=== PATIENT | female | born 1985 | race Asian ===

== ENCOUNTER 2020-11-23 14:50 | Inpatient (IN) | payer MEDICAID, OTHER ==
[~2020-11-23] VITALS: Ht 172.7 cm; Wt 77.5 kg
[~2020-11-23 14:50] MED LIST: IBUP-1222 PO; OXYC1TAB14 PO
[2020-12-03] MEDS ORDERED: SODIUM CITRATE/CITRIC ACID 15 ML UDC ONE (05:59)
[2020-12-03] MEDS ORDERED: SODIUM CITRATE/CITRIC ACID 30 ML UDC PO ONE (06:00)
[2020-12-03] MEDS ORDERED: LACTATED RINGERS 1,000 ML IVBOLUS ONE (06:00)
[2020-12-03] MEDS ORDERED: NEWBORN KIT ONE (06:00)
[2020-12-03] MEDS ORDERED: METOCLOPRAMIDE 5 MG/ML, 2ML IV ONE (06:00)
[2020-12-03] MEDS ORDERED: ONDANSETRON 2MG/ML, 2ML IVPush ONE (06:00)
[2020-12-03] MEDS ORDERED: METOCLOPRAMIDE 5 MG/ML, 2ML ONE (06:00)
[2020-12-03] MEDS ORDERED: PLEASE ENTER HEIGHT AND WEIGHT MC SCH (06:30)
[2020-12-03 06:37] VITALS: BP 119/79
[2020-12-03 06:48] LABS: BASOPHILS % (AUTO) 1 % (0-1); EOSINOPHILS % (AUTO) 1 % (1-7); LYMPHOCYTES % (AUTO) 26 % (22-44); MEAN CORPUSCULAR HGB CONC 34.6 g/dL (32.4-35.8); MONOCYTES % (AUTO) 10 % (2-9); NEUTROPHILS % (AUTO) 63 % (42-75); PLATELET COUNT 143 x10^3/uL (130-400); RED BLOOD COUNT 4.52 x10^6/uL (3.82-5.3); RED CELL DISTRIBUTION WIDTH 12.5 % (9.6-15.2)
[2020-12-03] MEDS ORDERED: OXYTOCIN 30U/ 0.9% NaCL 500ML 500 ML ONE (07:05)
[2020-12-03] MEDS ORDERED: FENTANYL PF 100 MCG/2ML ONE (07:07)
[2020-12-03] MEDS ORDERED: CEFAZOLIN 1,000 MG ONE ×2 (07:09)
[2020-12-03] MEDS ORDERED: OXYTOCIN 10 UNITS/ML, 1ML ONE ×4 (07:09→08:18)
[2020-12-03] MEDS ORDERED: KETOROLAC 30 MG/1 ML ONE (07:09)
[2020-12-03 07:16] LABS: MD SCAN
[2020-12-03] MEDS: LACTATED RINGERS 1,000 ML IV SCH ×7 (07:29→23:00)
[2020-12-03] MEDS ORDERED: PHENYLEPHRINE 10 MG/ML ONE (07:53)
[2020-12-03] MEDS ORDERED: EPHEDRINE 50 MG/ML, 1ML ONE (07:53)
[2020-12-03] MEDS ORDERED: morphine SULFATE 10 MG/ML, 1ML IVPush PRN ×2 (09:00)
[2020-12-03] MEDS ORDERED: MORPHINE SULFATE 4 MG/ML, 1ML IVPush PRN (09:00)
[2020-12-03] MEDS: PRENATAL VIT/IRON/FA 1 EACH TABLET PO SCH (09:00)
[2020-12-03] MEDS ORDERED: CALCIUM CARBONATE 500 MG TAB.CHEW PO PRN (09:00)
[2020-12-03] MEDS ORDERED: DIPHENHYDRAMINE 50 MG/ML, 1ML IVPush PRN (09:00)
[2020-12-03] MEDS ORDERED: ACETAMINOPHEN 325 MG TABLET PO PRN ×2 (09:00)
[2020-12-03] MEDS ORDERED: CARBOPROST TROMETHAMINE 250 MCG/ML, 1ML IM PRN (09:00)
[2020-12-03] MEDS ORDERED: FENTANYL PF 100 MCG/2ML IV PRN (09:00)
[2020-12-03] MEDS ORDERED: ONDANSETRON 2MG/ML, 2ML IV PRN (09:00)
[2020-12-03] MEDS ORDERED: OXYcodone 5 MG/5 ML ORAL.SOL UDC PO PRN (09:00)
[2020-12-03] MEDS ORDERED: ONDANSETRON 2MG/ML, 2ML IVPush PRN (09:00)
[2020-12-03] MEDS ORDERED: LABETALOL 5MG/ML, 20ML IV PRN (09:00)
[2020-12-03] MEDS ORDERED: MISOPROSTOL 200 MCG TABLET PR PRN (09:00)
[2020-12-03] MEDS ORDERED: METHYLERGONOVINE 0.2 MG/ML IM PRN (09:00)
[2020-12-03] MEDS: OXYTOCIN 30U/ 0.9% NaCL 500ML 500 ML IV SCH ×2 (09:19→19:00)
[2020-12-03 10:58] VITALS: BP 122/79
[2020-12-03] MEDS: SIMETHICONE 80 MG CHEW TAB PO PRN ×3 (12:15→23:58)
[2020-12-03] MEDS: IBUPROFEN 600 MG TABLET PO PRN ×3 (12:15→23:59)
[2020-12-03 16:10] VITALS: BP 117/73
[2020-12-03] MEDS: OXYcodone/APAP 5/325MG TABLET PO PRN ×3 (16:11→23:59)
[2020-12-03 16:14] LABS: BASOPHILS % (AUTO) 0 % (0-1); EOSINOPHILS % (AUTO) 0 % (1-7); LYMPHOCYTES % (AUTO) 12 % (22-44); MEAN CORPUSCULAR HEMOGLOBIN 29.7 pg (27.0-34.8); MEAN CORPUSCULAR HGB CONC 34.2 g/dL (32.4-35.8); MONOCYTES % (AUTO) 8 % (2-9); NEUTROPHILS % (AUTO) 80 % (42-75); PLATELET COUNT 134 x10^3/uL (130-400); RED BLOOD COUNT 4.46 x10^6/uL (3.82-5.3); RED CELL DISTRIBUTION WIDTH 12.7 % (9.6-15.2)
[2020-12-03 16:18] LABS: MD NO
[2020-12-03] MEDS: DOCUSATE 100 MG CAPSULE PO PRN (20:04)
[2020-12-03 20:12] VITALS: BP 113/74
[2020-12-04 00:15] VITALS: BP 117/77
[2020-12-04] MEDS: CETIRIZINE 10 MG TABLET PO SCH ×2 (00:30→09:00)
[2020-12-04] MEDS: LACTATED RINGERS 1,000 ML IV SCH ×3 (01:00→07:00)
[2020-12-04 04:00] VITALS: BP 96/63
[2020-12-04] MEDS: OXYcodone/APAP 5/325MG TABLET PO PRN ×5 (04:08→22:15)
[2020-12-04] MEDS: OXYTOCIN 30U/ 0.9% NaCL 500ML 500 ML IV SCH (05:00)
[2020-12-04] MEDS: IBUPROFEN 600 MG TABLET PO PRN ×3 (05:57→18:13)
[2020-12-04] MEDS ORDERED: ALUMINUM/MAG/SIMETHICONE 30 ML UDC PO SCH (06:30)
[2020-12-04 07:30] VITALS: BP 122/82
[2020-12-04] MEDS: DOCUSATE 100 MG CAPSULE PO PRN ×2 (08:40→18:13)
[2020-12-04] MEDS: SIMETHICONE 80 MG CHEW TAB PO PRN ×2 (08:40→18:14)
[2020-12-04] MEDS: PRENATAL VIT/IRON/FA 1 EACH TABLET PO SCH (09:00)
[2020-12-04 20:20] VITALS: BP 116/75
[2020-12-05] MEDS: IBUPROFEN 600 MG TABLET PO PRN ×2 (01:10→08:18)
[2020-12-05] MEDS: SIMETHICONE 80 MG CHEW TAB PO PRN (01:10)
[2020-12-05] MEDS: OXYcodone/APAP 5/325MG TABLET PO PRN ×2 (02:15→06:25)
[2020-12-05] MEDS ORDERED: OXYcodone/APAP 5/325MG TABLET ONE (06:21)
[2020-12-05 08:05] VITALS: BP 118/73
[2020-12-05] MEDS: DOCUSATE 100 MG CAPSULE PO PRN (08:18)
[2020-12-05] MEDS: CETIRIZINE 10 MG TABLET PO SCH (08:19)
[2020-12-05] MEDS: PRENATAL VIT/IRON/FA 1 EACH TABLET PO SCH (08:19)
== END 2020-12-05 12:25 | disposition home or self-care (01) | DRG 788 ==
LOC: LDIP 12-03 05:55 → 2NW 12-03 10:45
PROVIDERS: ADMIT Obstetrics & Gynecology; ATTEND Obstetrics & Gynecology
PROC: 10D00Z1 Extraction of Products of Conception, Low, Open Approach (ICD-10-PCS; principal; 2020-12-03)
DX: O34.211 Maternal care for low transverse scar from previous cesarean delivery (principal); O69.81X0 Labor and delivery complicated by cord around neck, without compression, not applicable or unspecified; Z20.822 Contact with and (suspected) exposure to COVID-19; O77.0 Labor and delivery complicated by meconium in amniotic fluid; Z37.0 Single live birth; Z3A.40 40 weeks gestation of pregnancy; Z80.0 Family history of malignant neoplasm of digestive organs
CPT/HCPCS: 36415; 85025; 86592; 86850; 86900; 87635; G0378; J0690; J1885; J3010; C1765; J2370; J2590; J2765; J7120